=== PATIENT | female | born 1955 | race Two or more races ===

== ENCOUNTER 2023-01-30 09:52 | Emergency (ER) | payer OTHER ==
[~2023-01-30] VITALS: Ht 154.9 cm; Wt 68.6 kg
[2023-01-30 10:33] VITALS: BP 113/72
[2023-01-30] MEDS ORDERED: MELO7.5T9 PO (10:57)
[2023-01-30] MEDS ORDERED: PRED20TA2 PO (10:57)
[2023-01-30] MEDS ORDERED: ACETAMINOPHEN 500 MG TAB PO ONE (11:15)
== END 2023-01-30 11:20 | disposition home or self-care (01) ==
LOC: ER 09:52
DX: M17.11 Unilateral primary osteoarthritis, right knee (principal); E03.9 Hypothyroidism, unspecified; Z79.899 Other long term (current) drug therapy
CPT/HCPCS: 73562

== ENCOUNTER 2023-03-19 12:56 | Emergency (ER) | payer OTHER ==
[~2023-03-19] VITALS: Ht 152.4 cm; Wt 72.3 kg
[~2023-03-19 12:56] MED LIST: MELO7.5T9 PO; PRED20TA2 PO
[2023-03-19] MEDS ORDERED: KETOROLAC TROMETH 60MG/2ML VIAL IM ONE (14:45)
[2023-03-19] MEDS ORDERED: HYDR-4902 PO (14:53)
[2023-03-19] MEDS ORDERED: PRED20TA2 PO (15:05)
[2023-03-19 15:09] VITALS: BP 36/58
== END 2023-03-19 15:35 | disposition home or self-care (01) ==
LOC: ER 12:56
DX: M17.11 Unilateral primary osteoarthritis, right knee (principal); Z88.6 Allergy status to analgesic agent
CPT/HCPCS: 96372; 99283; J1885

== ENCOUNTER 2023-09-08 09:46 | Emergency (ER) | payer OTHER ==
[~2023-09-08] VITALS: Ht 152.4 cm; Wt 72.2 kg
[~2023-09-08 09:46] MED LIST changes: +HYDR-4902 PO
[2023-09-08] MEDS ORDERED: ONDANSETRON ODT 4 MG TAB PO ONE (10:30)
[2023-09-08 11:30] LABS: Basophils # (auto) 0 10 ^3/uL (0-0.2); Basophils % (auto) 0.6 % (0.0-2.0); Eosinophils # (auto) 0.2 10 ^3/uL (0-0.8); Eosinophils % (auto) 2.3 % (0.0-7.0); Hematocrit 40.7 % (36.0-46.0); Hemoglobin 13.4 g/dL (12.2-16.2); Lymphocytes % (auto) 24.6 % (10.0-50.0); Mean Corpuscular Hemoglobin 28.5 pg (28.0-32.0); Mean Corpuscular Hgb Conc. 32.9 g/dL (32.0-36.0); Mean Corpuscular Volume 86.5 fL (80.0-100.0); Monocytes # (auto) 0.5 10 ^3/uL (0-1.3); Monocytes % (auto) 6.5 % (0.0-12.0); Neutrophils # (auto) 5.4 10 ^3/uL (1.6-8.6); Red Cell Distribution Width 13.2 % (11.8-14.3); White Blood Cell 8.1 10^3/uL (4.4-10.8)
[2023-09-08 11:41] LABS: Alanine Aminotransferase 10 U/L (7-40); Albumin 4.5 g/dL (3.2-4.8); Alkaline Phosphatase 88 U/L (46-116); Anion Gap 6 (5-15); Aspartate Aminotransferase 17 U/L (13-40); BUN/Creatinine Ratio 15.6 (10.0-20.0); Bilirubin, Total 0.4 mg/dL (0.2-1.0); Blood Urea Nitrogen 12 mg/dL (9-23); Calcium 9.3 mg/dL (8.5-10.1); Carbon Dioxide 28 mmol/L (20-30); Chloride 105 mmol/L (98-107); Glucose 100 mg/dL (74-106); Potassium 3.9 mmol/L (3.5-5.1); Sodium 139 mmol/L (136-145); Total Protein 7.2 g/dL (5.7-8.2)
[2023-09-08 12:20] LABS: Magnesium 2.2 mg/dL (1.6-2.6)
[2023-09-08 15:17] LABS: Urine Bacteria NONE SEEN /hpf (None Seen); Urine Blood TRACE /uL (Negative); Urine Clarity Clear (Clear); Urine Color Yellow (Yellow); Urine Mucus FEW (None Seen); Urine Protein, UAD Negative (Negative); Urine Specific Gravity 1.016 (1.001-1.035); Urine Urobilinogen Normal (Negative); Urine WBC 14 /hpf (0 - 5)
[2023-09-08] MEDS ORDERED: NITR-87 PO (15:30)
[2023-09-08 16:06] VITALS: BP 131/81; PULSE 99; RESP 18; TEMP 97.8; O2SAT 98
== END 2023-09-08 14:49 | disposition home or self-care (01) ==
LOC: ER 09:46
DX: N39.0 Urinary tract infection, site not specified (principal); J45.909 Unspecified asthma, uncomplicated; Z87.442 Personal history of urinary calculi; Z79.899 Other long term (current) drug therapy
CPT/HCPCS: 36415; 70450; 71046; 80053; 81001; 83735; 85025; 93005; 99285; Q0162

== ENCOUNTER → 2024-04-18 | Outpatient (CLI) | payer OTHER ==
[~2024-04-18] MED LIST changes: +NITR-87 PO
== END | disposition home or self-care (01) ==
LOC: XYW 14:10
PROVIDERS: ATTEND Student in an Organized Health Care Education/Training Program
DX: Z01.810 Encounter for preprocedural cardiovascular examination (principal); I51.89 Other ill-defined heart diseases
CPT/HCPCS: 93306

== ENCOUNTER → 2024-04-26 | Outpatient (CLI) | payer OTHER ==
[~2024-04-26] VITALS: Ht 152.4 cm; Wt 69.9 kg
[2024-04-26] MEDS: ADENOSINE 59 MG in GIVE UN-DILUTED 0 ML IV STA (11:35)
== END | disposition home or self-care (01) ==
LOC: XYW 09:11
PROVIDERS: ATTEND Student in an Organized Health Care Education/Training Program
DX: Z01.810 Encounter for preprocedural cardiovascular examination (principal); M25.562 Pain in left knee; M25.561 Pain in right knee; G89.29 Other chronic pain
CPT/HCPCS: 78452; 93017; A9500; J0153

== ENCOUNTER → 2024-05-09 | Outpatient (CLI) | payer OTHER ==
[2024-05-09 09:10] LABS: Urine Bacteria None Seen /hpf (None Seen)
[2024-05-09 09:13] LABS: Basophils # (auto) 0 10 ^3/uL (0-0.2); Basophils % (auto) 0.6 % (0.0-2.0); Eosinophils # (auto) 0.2 10 ^3/uL (0-0.8); Eosinophils % (auto) 2.7 % (0.0-7.0); Hematocrit 38.2 % (36.0-46.0); Hemoglobin 12.5 g/dL (12.2-16.2); Lymphocytes # (auto) 2.1 10 ^3/uL (0.4-5.4); Lymphocytes % (auto) 30.3 % (10.0-50.0); Mean Corpuscular Hemoglobin 28.8 pg (28.0-32.0); Mean Corpuscular Hgb Conc. 32.8 g/dL (32.0-36.0); Mean Corpuscular Volume 87.9 fL (80.0-100.0); Monocytes # (auto) 0.6 10 ^3/uL (0-1.3); Monocytes % (auto) 7.9 % (0.0-12.0); Neutrophils # (auto) 4.1 10 ^3/uL (1.6-8.6); Neutrophils % (auto) 58.5 % (37.0-80.0); Red Blood Cells 4.34 10^6/uL (4.0-5.20); Red Cell Distribution Width 14.1 % (11.8-14.3); White Blood Cell 6.9 10^3/uL (4.4-10.8)
[2024-05-09 09:21] LABS: Urine Blood 1+ /uL (Negative); Urine Clarity Clear (Clear); Urine Color Light-Yellow (Yellow); Urine Mucus FEW (None Seen); Urine Protein, UAD Negative (Negative); Urine Specific Gravity 1.016 (1.001-1.035); Urine Urobilinogen Normal (Negative); Urine WBC 30 /hpf (0 - 5)
[2024-05-09 09:38] LABS: INR 0.98 (0.9-1.15); Partial Thromboplastin Time 29.4 SEC (24.5-34.5); Prothrombin Time 10.4 sec (9.3-11.8)
[2024-05-09 10:31] LABS: Alanine Aminotransferase 15 U/L (7-40); Alkaline Phosphatase 83 U/L (46-116); Anion Gap 5 (5-15); BUN/Creatinine Ratio 15.9 (10.0-20.0); Blood Urea Nitrogen 13 mg/dL (9-23); Calcium 9.5 mg/dL (8.5-10.1); Carbon Dioxide 26 mmol/L (20-30); Chloride 111 mmol/L (98-107); Glucose 90 mg/dL (74-106); LDL Cholesterol 115 mg/dL (< 100); Potassium 3.7 mmol/L (3.5-5.1); Sodium 142 mmol/L (136-145); Triglycerides 133 mg/dL (< 150)
[2024-05-09 10:32] LABS: Albumin 4.3 g/dL (3.2-4.8); Aspartate Aminotransferase 14 U/L (13-40); Cholesterol 194 mg/dL (< 200); HDL Cholesterol 66 mg/dL (40-59)
[2024-05-09 10:33] LABS: Bilirubin, Total 0.5 mg/dL (0.2-1.0); Total Protein 6.4 g/dL (5.7-8.2)
== END | disposition home or self-care (01) ==
LOC: LAB 09:00
PROVIDERS: ATTEND Family Medicine
DX: Z01.812 Encounter for preprocedural laboratory examination (principal); R73.03 Prediabetes; M17.0 Bilateral primary osteoarthritis of knee; E03.9 Hypothyroidism, unspecified
CPT/HCPCS: 36415; 80053; 80061; 81001; 83036; 84443; 85025; 85610; 85730

== ENCOUNTER 2024-07-13 08:50 | Inpatient (IN) | payer OTHER ==
[2024-07-11 10:26] LABS: Basophils # (auto) 0 10 ^3/uL (0-0.2); Basophils % (auto) 0.5 % (0.0-2.0); Eosinophils # (auto) 0.2 10 ^3/uL (0-0.8); Eosinophils % (auto) 2.3 % (0.0-7.0); Hemoglobin 13.7 g/dL (12.2-16.2); Lymphocytes # (auto) 1.8 10 ^3/uL (0.4-5.4); Lymphocytes % (auto) 26.7 % (10.0-50.0); Mean Corpuscular Hgb Conc. 33.3 g/dL (32.0-36.0); Mean Corpuscular Volume 87.1 fL (80.0-100.0); Monocytes # (auto) 0.4 10 ^3/uL (0-1.3); Neutrophils # (auto) 4.2 10 ^3/uL (1.6-8.6); Neutrophils % (auto) 64.5 % (37.0-80.0); Platelet Count (auto) 303 10^3/uL (140-450); Red Blood Cells 4.71 10^6/uL (4.0-5.20); Red Cell Distribution Width 13.3 % (11.8-14.3); White Blood Cell 6.6 10^3/uL (4.4-10.8)
[2024-07-11 10:56] LABS: Alanine Aminotransferase 14 U/L (7-40); Alkaline Phosphatase 83 U/L (46-116); Anion Gap 7 (5-15); BUN/Creatinine Ratio 16.3 (10.0-20.0); Blood Urea Nitrogen 13 mg/dL (9-23); Calcium 9.7 mg/dL (8.7-10.4); Carbon Dioxide 26 mmol/L (20-30); Chloride 108 mmol/L (98-107); Glucose 125 mg/dL (74-106); Potassium 3.6 mmol/L (3.5-5.1); Sodium 141 mmol/L (136-145)
[2024-07-11 10:57] LABS: Albumin 4.4 g/dL (3.2-4.8); Aspartate Aminotransferase 17 U/L (13-40); Bilirubin, Total 0.5 mg/dL (0.2-1.0); Total Protein 6.9 g/dL (5.7-8.2)
[2024-07-11 11:01] LABS: Urine Bacteria FEW /hpf (None Seen); Urine Blood Negative /uL (Negative); Urine Budding Yeast OCCASIONAL /hpf (None Seen); Urine Clarity Clear (Clear); Urine Color Yellow (Yellow); Urine Mucus FEW (None Seen); Urine Protein, UAD Negative (Negative); Urine Specific Gravity 1.026 (1.001-1.035); Urine Urobilinogen Normal (Negative); Urine WBC 12 /hpf (0 - 5)
[2024-07-11 11:10] LABS: INR 0.99 (0.9-1.15); Partial Thromboplastin Time 31.5 SEC (24.5-34.5); Prothrombin Time 10.5 sec (9.3-11.8)
[~2024-07-13] VITALS: Ht 152.4 cm; Wt 73.5 kg
[~2024-07-13 08:50] MED LIST changes: -HYDR-4902 PO; +LEVO25TA6 PO; -MELO7.5T9 PO; -NITR-87 PO; -PRED20TA2 PO
[2024-07-13] MEDS: ceFAZolin 2 GM/D5W50ml 50 ML IV ONE (09:36)
[2024-07-13] MEDS: TRANEXAMIC ACID 20 ML ONE (10:58)
[2024-07-13] MEDS ORDERED: MIDAZOLAM HCL 2MG/2ML 2ml VIAL (1mg/ml) ONE (11:32)
[2024-07-13] MEDS ORDERED: fentaNYL CITRATE 100 MCG/2 ML VL ONE (11:32)
[2024-07-13] MEDS ORDERED: PROPOFOL 10 MG/ML 20 ML IV ONE (11:53)
[2024-07-13] MEDS ORDERED: ONDANSETRON HCL 4 MG/2 ML VIAL ONE (12:26)
[2024-07-13] MEDS ORDERED: ePHEDrine SULFATE 50 MG/ML AMP ONE (12:31)
[2024-07-13] MEDS: ROPIVACAINE 0.5% (5MG/ML) 20ML AMPULE IJ ONE (12:42)
[2024-07-13] MEDS: VANCOMYCIN HCL 1000 MG VL ONE (13:20)
[2024-07-13 13:43] VITALS: PULSE 78; RESP 23; O2SAT 97
[2024-07-13] MEDS ORDERED: ACETAMINOPHEN 325 MG TAB PO PRN (13:45)
[2024-07-13] MEDS ORDERED: BISACODYL 5 MG EC TAB PO PRN (13:45)
[2024-07-13] MEDS ORDERED: NITROGLYCERIN 0.4 MG SL TAB SL PRN (13:45)
[2024-07-13] MEDS ORDERED: ONDANSETRON HCL 4 MG/2 ML VIAL IV PRN (13:45)
[2024-07-13] MEDS: LACTATED RINGER'S 1,000 ML IV SCH (14:00)
[2024-07-13] MEDS ORDERED: HYDROmorphone HCL 2 MG/ML VL/or syr IV PRN (14:15)
[2024-07-13] MEDS ORDERED: MEPERIDINE HCL (25 MG/ML) 1ML VIAL IV PRN (14:15)
[2024-07-13] MEDS: ONDANSETRON HCL 4 MG/2 ML VIAL IV ONE (14:15)
[2024-07-13] MEDS: OXYCODONE W/ ACETAMINOPHEN 5/325MG TABLET PO PRN (16:10)
[2024-07-13] MEDS: CLINDAMYCIN 600MG IV 50 ML IV SCH (16:24)
[2024-07-13 17:22] VITALS: BP 127/66; PULSE 69; RESP 17; TEMP 98.1; O2SAT 96
[2024-07-13] MEDS: MORPHINE SULFATE INJ 2 MG/ml SYRG IV PRN (19:01)
[2024-07-13] MEDS: ceFAZolin 1GM/50ML 50 ML IV SCH (19:45)
[2024-07-13 20:00] VITALS: PULSE 94; RESP 18; O2SAT 97
[2024-07-13 21:00] VITALS: BP 114/68; PULSE 94; RESP 18; TEMP 98.2; O2SAT 97
[2024-07-13] MEDS: DOCUSATE SOD 100 MG CAP PO SCH (22:00)
[2024-07-14] VITALS (8 sets, daily range): BP systolic 100–148; BP diastolic 53–74; PULSE 92–102; RESP 16–20; TEMP 97.6–98.1; O2SAT 91–95
[2024-07-14] MEDS: ENOXAPARIN SOD 40 MG/0.4 ML SYRINGE SC SCH (08:03)
[2024-07-14] MEDS: LACTATED RINGER'S 1,000 ML IV SCH (14:00)
[2024-07-15 01:00] VITALS: BP 107/56; PULSE 84; RESP 20; TEMP 97.6; O2SAT 91
[2024-07-15] MEDS: LEVOTHYROXINE SODIUM 25 MCG TAB PO SCH (04:45)
[2024-07-15 05:00] VITALS: BP 129/60; PULSE 90; RESP 18; TEMP 98; O2SAT 94
[2024-07-15 06:35] LABS: Basophils # (auto) 0 10 ^3/uL (0-0.2); Basophils % (auto) 0.1 % (0.0-2.0); Eosinophils # (auto) 0.1 10 ^3/uL (0-0.8); Eosinophils % (auto) 0.8 % (0.0-7.0); Hematocrit 33.7 % (36.0-46.0); Hemoglobin 11.1 g/dL (12.2-16.2); Lymphocytes % (auto) 9.9 % (10.0-50.0); Mean Corpuscular Hemoglobin 29.7 pg (28.0-32.0); Mean Corpuscular Hgb Conc. 32.8 g/dL (32.0-36.0); Mean Corpuscular Volume 90.5 fL (80.0-100.0); Monocytes # (auto) 0.8 10 ^3/uL (0-1.3); Monocytes % (auto) 8.2 % (0.0-12.0); Neutrophils # (auto) 8.3 10 ^3/uL (1.6-8.6); Nucleated Red Blood Cells % 0.1 %; Platelet Count (auto) 201 10^3/uL (140-450); Red Blood Cells 3.72 10^6/uL (4.0-5.20); Red Cell Distribution Width 13.4 % (11.8-14.3); White Blood Cell 10.3 10^3/uL (4.4-10.8)
[2024-07-15 06:52] LABS: Alanine Aminotransferase 13 U/L (7-40); Albumin 3.7 g/dL (3.2-4.8); Alkaline Phosphatase 66 U/L (46-116); Anion Gap 8 (5-15); Aspartate Aminotransferase 18 U/L (13-40); BUN/Creatinine Ratio 14.3 (10.0-20.0); Bilirubin, Total 0.9 mg/dL (0.2-1.0); Blood Urea Nitrogen 8 mg/dL (9-23); Calcium 9.1 mg/dL (8.7-10.4); Carbon Dioxide 24 mmol/L (20-30); Chloride 104 mmol/L (98-107); Glucose 104 mg/dL (74-106); Potassium 3.2 mmol/L (3.5-5.1); Total Protein 5.9 g/dL (5.7-8.2)
[2024-07-15 06:59] LABS: Sodium 136 mmol/L (136-145)
[2024-07-15 08:20] VITALS: PULSE 109; RESP 16; O2SAT 97
[2024-07-15 09:37] VITALS: BP 139/77; PULSE 109; RESP 16; TEMP 98.4; O2SAT 97
[2024-07-15] MEDS: POTASSIUM CHL 20 Meq TABLET PO ONE (11:21)
[2024-07-15 14:39] VITALS: BP 135/64; PULSE 108; RESP 17; TEMP 98.2; O2SAT 94
[2024-07-15 14:58] VITALS: BP 135/64; PULSE 108; RESP 17; TEMP 98.2; O2SAT 94
== END 2024-07-15 15:40 | disposition home or self-care (01) | DRG 470 ==
LOC: SUR 08:50 → OVERFLOW 13:43 → WEST WING 15:07
PROVIDERS: ADMIT Orthopaedic Surgery; ATTEND Internal Medicine
PROC: 0SRC0J9 Replacement of Right Knee Joint with Synthetic Substitute, Cemented, Open Approach (ICD-10-PCS; principal; 2024-07-13 11:47)
DX: M17.11 Unilateral primary osteoarthritis, right knee (principal); E03.9 Hypothyroidism, unspecified; E66.9 Obesity, unspecified; I25.10 Atherosclerotic heart disease of native coronary artery without angina pectoris; Z68.31 Body mass index [BMI] 31.0-31.9, adult; Z79.899 Other long term (current) drug therapy
CPT/HCPCS: 36415; 73562; 80053; 81001; 84443; 85025; 85610; 85730; 86850; 86900; 86901; 97110; 97116; 97163; 97530; G0378; J2250; J2405; J2704; J3490

== ENCOUNTER → 2024-08-26 | Outpatient (CLI) | payer OTHER ==
[~2024-08-26] MED LIST changes: +TEMA30CA PO
[2024-08-26 10:18] LABS: Free T3 2.98 pg/mL (2.3-4.2); T3 Total 1.31 ng/mL (0.60-1.81)
[2024-08-26 10:20] LABS: Free T4 (Free Thyroxine) 1.09 ng/dL (0.89-1.76)
== END | disposition home or self-care (01) ==
LOC: LAB 07:53
PROVIDERS: ATTEND Family Medicine
DX: E03.9 Hypothyroidism, unspecified (principal); H04.123 Dry eye syndrome of bilateral lacrimal glands; M17.0 Bilateral primary osteoarthritis of knee
CPT/HCPCS: 36415; 84439; 84443; 84480; 84481